=== PATIENT | female | born 1955 | race Caucasian/White ===

== ENCOUNTER 2017-08-15 02:51 | Emergency (ER) | payer MEDICAID, OTHER ==
[~2017-08-15] VITALS: Ht 157.5 cm; Wt 45.8 kg
[~2017-08-15 02:51] MED LIST: ALBU0.63 IH; CARI350T PO; HYDR-548 PO; HYDR25TA4 PO
--- NOTE | 2017-08-15 03:27 | NUR ---
DR ALLI NATHAN MD AT BEDSIDE FOR MSE.
[2017-08-15] MEDS ORDERED: IV NORMAL SALINE 1000 ML BAG IV ONE (03:30)
--- NOTE | 2017-08-15 03:52 | NUR ---
RADIOLOGY AT PT BEDSIDE FOR XRAY AND CT SCAN.
[2017-08-15 04:00] LABS: BASOPHILS % (AUTO) 0.4 % (0.0-2.0); EOSINOPHILS % (AUTO) 0.6 % (0.0-7.0); HEMOGLOBIN 14.6 g/dL (10.9-14.3); LYMPHOCYTES # (AUTO) 1.1 K/uL (20.0-40.0); LYMPHOCYTES % (AUTO) 22.9 % (20.5-51.5); MEAN CORPUSCULAR HEMOGLOBIN 30.1 uug (24.7-32.8); MEAN CORPUSCULAR HGB CONC 34 g/dL (32.3-35.6); MEAN CORPUSCULAR VOLUME 88.8 fL (75.5-95.3); MONOCYTES # (AUTO) 0.3 K/uL (2.0-10.0); MONOCYTES % (AUTO) 6.3 % (0.0-11.0); NEUTROPHILS # (AUTO) 3.4 K/uL (1.8-8.9); NEUTROPHILS % (AUTO) 69.8 % (38.5-71.5); PLATELET COUNT (AUTO) 246 K/uL (179-408); RED BLOOD CELL COUNT(AUTO) 4.84 MIL/uL (3.63-4.92); WHITE BLOOD COUNT (AUTO) 4.8 K/uL (3.8-11.8)
--- NOTE | 2017-08-15 04:16 | NUR ---
PT BECOMES INCREASINGLY AGGITATED, AND BECOMES VERBALLY ABUSIVE TOWARDS STAFF. PT REFUSES TO PROVIDE URINE OR ALLOW EKG TO BE COMPLETED "UNTIL SHE GETS HER PAIN MEDS".
[2017-08-15 04:21] LABS: ALANINE AMINOTRANSFERASE 28 U/L (14-59); ALKALINE PHOSPHATASE 118 U/L (50-136); ASPARTATE AMINOTRANSFERASE 48 U/L (15-37); BILIRUBIN,DIRECT 0.1 mg/dL (0.0-0.2); BILIRUBIN,TOTAL 0.5 mg/dL (0.2-1.0); CARBON DIOXIDE 28 mmol/L (21-32); CHLORIDE 102 mmol/L (98-107); CREATININE 0.6 mg/dL (0.6-1.3); GLUCOSE 91 mg/dL (74-106); POTASSIUM 3.7 mmol/L (3.5-5.1); TOTAL PROTEIN, SERUM 8.5 g/dL (6.4-8.2); UREA NITROGEN, BLOOD 9 mg/dL (7-18)
[2017-08-15 04:27] LABS: ETHANOL 105 MG/DL (0-0)
[2017-08-15 04:29] LABS: ACETAMINOPHEN < 2.0 ug/mL (10-30); THYROID STIMULATING HORMONE 1.104 mIU/mL (0.358-3.740)
[2017-08-15] MEDS ORDERED: diphenhydrAMINE 50 MG/1 ML VIAL ONE (04:54)
[2017-08-15] MEDS ORDERED: MORPHINE SULFATE 4 MG/1 ML DISP.SYRIN ONE (04:54)
[2017-08-15] MEDS ORDERED: diphenhydrAMINE 50 MG/1 ML VIAL IV ONE (05:00)
[2017-08-15] MEDS ORDERED: MORPHINE SULFATE 4 MG/1 ML DISP.SYRIN IV ONE (05:00)
--- NOTE | 2017-08-15 05:58 | NUR ---
PT RESTING IN BED W/ EYES CLOSED. BREATHING EVEN AND UNLABORED. NO DISTRESS NOTED.
--- NOTE | 2017-08-15 07:22 | NUR ---
REPORT GIVEN TO CHYNA BUITRAGO.
[2017-08-15 08:36] LABS: *BILIRUBIN,URIN NEGATIVE (NEGATIVE); *BLOOD, URINE NEGATIVE (NEGATIVE); *CLARITY,URINE CLEAR (CLEAR); *COLOR,URINE YELLOW (YELLOW); *KETONES,URINE NEGATIVE (NEGATIVE); *PROTEIN,URINE NEGATIVE (NEGATIVE); *UROBILINOGEN,URINE 0.2 E.U./dl (NORMAL); LEUKOCYTE ESTERASE ,URINE NEGATIVE (NEGATIVE); NITRITE, URINE POSITIVE (NEGATIVE); PH,URINE 5.5 (5.0-8.0); UGLUCOSE NEGATIVE (NEGATIVE)
[2017-08-15 08:42] LABS: BACTERIA,URINE MANY /HPF (NONE SEEN); RBC,URINE 0-3 /HPF (0-3); SQUAMOUS EPITHELIAL CELL,UR FEW /HPF (NONE SEEN)
--- NOTE | 2017-08-15 08:45 | NUR ---
DR PONCE DISCUSSED WITH [facility] PTRANSFER. [facility] BODY TEAM MEMBER PROMISED TO CALL BACK WITH TRANSFER INFORMATION.
[2017-08-15 08:46] LABS: *AMPHETAMINE, URINE NEGATIVE (NEGATIVE); *BARBITURATE, URINE NEGATIVE (NEGATIVE); *CANNABINOID, URINE NEGATIVE (NEGATIVE); *COCCAINE, URINE NEGATIVE (NEGATIVE); *OPIATE, URINE POSITIVE (NEGATIVE); *PHENCYCLIDINE SCREEN,URINE NEGATIVE (NEGATIVE)
[2017-08-15] MEDS ORDERED: LORAZEPAM 2 MG/1 ML VIAL IV ONE (09:15)
[2017-08-15] MEDS ORDERED: LORAZEPAM 2 MG/1 ML VIAL ONE (09:18)
--- NOTE | 2017-08-15 11:28 | NUR ---
DR PONCE TALKED TO [facility] PRODUCE DEPARTMENT SUPERVISOR ABOUT PT'S TRANSFER. [facility] DEPARTMENT SUPERVISOR PROMISED TO CALL BACK WITH TRANSFER INFORMATION. PT IS RESTING IN BED COMFORTABLY, NO S/S OF DISTRESS AT THIS TIME.
--- NOTE | 2017-08-15 11:28 | NUR ---
Amber jaranik in ED - 08/15/[address] PONCE TALKED TO [facility] ROUTE PROCESS ADMINISTRATOR ABOUT PT'S TRANSFER. [facility] ROUTE PROCESS ADMINISTRATOR PROMISED TO CALL BACK WITH TRANSFER INFORMATION. PT IS RESTING IN BED COMFORTABLY, NO S/S OF DISTRESS AT THIS TIME.
--- NOTE | 2017-08-15 11:59 | NUR ---
DR PONCE TALKED TO MANAGER ONCOLOGY ABNER FROM [facility]. PT IS GOING TO BE TRANSFERED TO [facility] , ACCEPTING MD IS DR. HILLS. PT IS RESTING IN BED. NO S/S OF DISTRESS AT THIS TIME. CONTINUE TO MONITOR THE PT.
--- NOTE | 2017-08-15 14:08 | NUR ---
PERMIT REVIEW ASSISTANT OF [facility] CALLED WITH TRANSFER INFORMATION : ROOM # 315-B, PHONE NUMBER FOR REPORT IS : [phone].
--- NOTE | 2017-08-15 15:17 | NUR ---
PT REFUSED TO GO TO [facility]. PT REFUSED TRANSFER. DR PONCE TALKED TO THE PT, BU PT INSISTED TO LEAVE HOSPITAL AMA AND REFUSED TRANSFER TO ANOTHER HOSPITAL. DR PONCE EXPLAINED TO THE PT ALL RISKS OF LEAVING HOSPITAL AMA. PT VERBALIZED FULL UNDERSTANDING OF AMA INSTRUCTIONS. PT SIGNED AMA FORM AND LEFT HOSPITAL . GAIT IS STABLE. PT DENIES HALL. NO N/V, NO SOB.
--- NOTE | 2017-08-15 15:21 | NUR ---
CLOTHING CONSULTANT ABNER WAS NOTIFIED, ACCORDING TO DR PONCE ORDER. [facility]NER CANCELLED TRNSPORTATION AND PT's TRNSFER .
[2017-08-15 15:29] VITALS: BP 130/79
== END 2017-08-15 15:30 | disposition left against medical advice (07) ==
LOC: ER 02:55
DX: R10.32 Left lower quadrant pain (principal); R41.82 Altered mental status, unspecified; I10 Essential (primary) hypertension; F17.210 Nicotine dependence, cigarettes, uncomplicated; Z88.8 Allergy status to other drugs, medicaments and biological substances; Z90.49 Acquired absence of other specified parts of digestive tract; Z59.0 Homelessness; Z79.891 Long term (current) use of opiate analgesic; Z79.899 Other long term (current) drug therapy
CPT/HCPCS: 36415; 70450; 71045; 74176; 80048; 80076; 80307; 81001; 82140; 83605; 83690; 84443; 84484; 85025; 85730; 87040 ×2; 93005; 96361; 96374; 96375; 99285; A4663; G0480 ×2; G0481; J1200; J2060; J2270; J7030; 70030-TC; 87086

== ENCOUNTER 2018-03-01 19:08 | Emergency (ER) | payer OTHER ==
[~2018-03-01] VITALS: Ht 154.9 cm; Wt 45.4 kg
[~2018-03-01 19:08] MED LIST changes: +HYDR-4354 PO; -HYDR-548 PO
[2018-03-01] MEDS ORDERED: HYDROCODONE/APAP 5-325MG TABLET PO ONE (19:30)
[2018-03-01] MEDS ORDERED: HYDROCODONE/APAP 5-325MG TABLET ONE (19:36)
--- NOTE | 2018-03-01 20:25 | NUR ---
Patient given written and verbal discharge instructions. Patient verbalizes understanding of instructions. Patient is ambulatory with steady gait. Refuses offer of half-way placement. Patient given list of available shelters in surrounding area. Pt given food.
[2018-03-01 20:27] VITALS: BP 108/77
== END 2018-03-01 20:29 | disposition home or self-care (01) ==
LOC: ER 19:10
DX: G89.29 Other chronic pain (principal); M54.2 Cervicalgia; M47.892 Other spondylosis, cervical region; I10 Essential (primary) hypertension; F17.200 Nicotine dependence, unspecified, uncomplicated; Z90.49 Acquired absence of other specified parts of digestive tract; Z59.0 Homelessness; Z88.8 Allergy status to other drugs, medicaments and biological substances; Z79.891 Long term (current) use of opiate analgesic; Z79.899 Other long term (current) drug therapy
CPT/HCPCS: 72050; A4663

== ENCOUNTER 2018-05-07 00:48 | Emergency (ER) | payer OTHER ==
[~2018-05-07] VITALS: Ht 154.9 cm; Wt 44.5 kg
[2018-05-07] MEDS ORDERED: HYDROCODONE/APAP 5-325MG TABLET ONE (01:55)
[2018-05-07] MEDS ORDERED: HYDROCODONE/APAP 5-325MG TABLET PO ONE (02:00)
[2018-05-07] MEDS ORDERED: AMOXicillin 250 MG CAPSULE PO ONE (02:15)
[2018-05-07] MEDS ORDERED: AMOXicillin 250 MG CAPSULE ONE (02:19)
--- NOTE | 2018-05-07 06:06 | NUR ---
Patient given written and verbal discharge instructions. Patient verbalizes understanding of instructions. Patient is ambulatory with steady gait. Refuses offer of correction placement. Patient given list of available shelters in surrounding area. Provided pt fabby ruiz.
== END 2018-05-07 06:09 | disposition home or self-care (01) ==
LOC: ER 00:53
DX: H66.92 Otitis media, unspecified, left ear (principal); M54.6 Pain in thoracic spine; R05 Cough; I10 Essential (primary) hypertension; F17.210 Nicotine dependence, cigarettes, uncomplicated; Z88.8 Allergy status to other drugs, medicaments and biological substances; Z59.0 Homelessness; Z79.891 Long term (current) use of opiate analgesic; Z79.899 Other long term (current) drug therapy
CPT/HCPCS: 71045; A4663

== ENCOUNTER 2018-06-02 00:10 | Emergency (ER) | payer OTHER ==
[~2018-06-02] VITALS: Ht 154.9 cm; Wt 45.4 kg
[2018-06-02] MEDS ORDERED: HYDROCODONE/APAP 10-325 MG TABLET ONE (00:57)
[2018-06-02] MEDS: HYDROCODONE/APAP 10-325 MG TABLET PO ONE (00:58)
[2018-06-02 01:42] LABS: BASOPHILS % (AUTO) 0.8 % (0.0-2.0); EOSINOPHILS % (AUTO) 0.7 % (0.0-7.0); HEMATOCRIT 30.1 % (31.2-41.9); HEMOGLOBIN 10.1 g/dL (10.9-14.3); LYMPHOCYTES # (AUTO) 1.2 K/uL (20.0-40.0); LYMPHOCYTES % (AUTO) 21.7 % (20.5-51.5); MEAN CORPUSCULAR HEMOGLOBIN 31.2 uug (24.7-32.8); MEAN CORPUSCULAR HGB CONC 34 g/dL (32.3-35.6); MEAN CORPUSCULAR VOLUME 93.3 fL (75.5-95.3); MONOCYTES # (AUTO) 0.5 K/uL (2.0-10.0); MONOCYTES % (AUTO) 8.7 % (0.0-11.0); NEUTROPHILS # (AUTO) 3.8 K/uL (1.8-8.9); NEUTROPHILS % (AUTO) 68.1 % (38.5-71.5); PLATELET COUNT (AUTO) 344 K/uL (179-408); RED BLOOD CELL COUNT(AUTO) 3.22 MIL/uL (3.63-4.92); WHITE BLOOD COUNT (AUTO) 5.6 K/uL (3.8-11.8)
[2018-06-02] MEDS ORDERED: MORPHINE SULFATE 2 MG/1 ML DISP.SYRIN ONE ×2 (01:43→05:37)
[2018-06-02] MEDS ORDERED: ONDANSETRON 4 MG/2 ML VIAL ONE ×2 (01:43→06:02)
[2018-06-02 02:03] LABS: BILIRUBIN,DIRECT 0.1 mg/dL (0.0-0.2); BILIRUBIN,TOTAL 0.2 mg/dL (0.2-1.0); CREATININE 0.6 mg/dL (0.6-1.3); POTASSIUM 3.7 mmol/L (3.5-5.1); TOTAL PROTEIN, SERUM 6.4 g/dL (6.4-8.2)
[2018-06-02] MEDS: MORPHINE SULFATE 2 MG/1 ML DISP.SYRIN IV ONE ×2 (02:14→05:37)
[2018-06-02] MEDS: ONDANSETRON 4 MG/2 ML VIAL IV ONE ×2 (02:14→06:19)
--- NOTE | 2018-06-02 04:01 | NUR ---
Spoke with Shanel from [place]. Requested face sheet and clinicals to be faxed to
--- NOTE | 2018-06-02 04:10 | NUR ---
CLINICALS FAXED TO YANDY AT [facility]
--- NOTE | 2018-06-02 05:51 | NUR ---
CLINICALS FAXED TO YANDY FROM [facility] . PATIENT WILL BE TRANSFERRED TO [facility], ACCEPTING DR. CARRENO. AWAITING CALL FOR ROOM NUMBER.
[2018-06-02] MEDS ORDERED: HYDROMORPHONE 1 MG/1 ML DISP.SYRIN ONE ×2 (06:02→09:39)
[2018-06-02] MEDS: HYDROMORPHONE 1 MG/1 ML DISP.SYRIN IV ONE ×2 (06:19→09:39)
--- NOTE | 2018-06-02 07:36 | NUR ---
Patient is resting comfortably on gurney with eyes closed, pending transfer information from [email or web address] time per report from previous CHYNA Hamm.
--- NOTE | 2018-06-02 08:47 | NUR ---
Per Prasanna, (our ER registration staff) this patient will go to [facility], pending callback from [facility] for transfer information.
--- NOTE | 2018-06-02 09:10 | NUR ---
Received telephone call from Brian from [facility] who stated pt will be tansfered to [facility] and she will call back with further information.
--- NOTE | 2018-06-02 09:30 | NUR ---
Received telephone call from Brian from [facility] with transfer information. Accepting Hospital: [facility] Accepting doctor : Dr. Perez Bed: 315A, call [phone] for report. Brian stated she will arrange for ambulance machine operator picker and call back with ETA.
--- NOTE | 2018-06-02 09:32 | NUR ---
Patient is not NPO per Dr Villagomez. Breakfast [email or web address].
--- NOTE | 2018-06-02 09:51 | NUR ---
Patient Tranfers to outside Facility: [facility] Physician: Dr Perez Location: 315 med-surgical bed RN: Wilder alcala hands off report ambulance arranged by [employer] ETA=??[email or web address] time([id number])
--- NOTE | 2018-06-02 10:00 | NUR ---
ETA for picker/puller = [id number] per telephone call from Brian [facility] [place].
--- NOTE | 2018-06-02 10:16 | NUR ---
Patient requested for new pair of pants. One blue jeans found in the donated clothing pile & offered to patient.
--- NOTE | 2018-06-02 11:12 | NUR ---
insole rasper of [facility] ambulance unit 112 accepted the patient. Patient wanted more IV pain medicine, Dr Villagomez notified- no new orders given at this time.
== END 2018-06-02 11:14 | disposition short-term general hospital (02) ==
LOC: ER 00:11
DX: S42.202A Unspecified fracture of upper end of left humerus, initial encounter for closed fracture (principal); F10.129 Alcohol abuse with intoxication, unspecified; I10 Essential (primary) hypertension; F17.210 Nicotine dependence, cigarettes, uncomplicated; Z59.0 Homelessness; Z88.8 Allergy status to other drugs, medicaments and biological substances; Y90.6 Blood alcohol level of 120-199 mg/100 ml; W19.XXXA Unspecified fall, initial encounter; Y93.89 Activity, other specified; Y92.89 Other specified places as the place of occurrence of the external cause; Y99.8 Other external cause status
CPT/HCPCS: 36415; 71045; 73020; 80048; 80076; 85025; 85730; 93005; 96374; 96375; 96376; 99285; G0480; J1170 ×2; J2270 ×2; J2405 ×2; A4663

== ENCOUNTER 2018-11-14 22:53 | Emergency (ER) | payer OTHER ==
[~2018-11-14] VITALS: Ht 154.9 cm; Wt 46.3 kg
--- NOTE | 2018-11-14 23:10 | NUR ---
PATIENT WAS MSE BY DR HOU IN ROOM 03A.
[2018-11-14] MEDS ORDERED: MORPHINE SULFATE 2 MG/1 ML DISP.SYRIN ONE (23:40)
[2018-11-14] MEDS ORDERED: TRAMADOL HCL 50 MG TABLET ONE (23:41)
[2018-11-14] MEDS: TRAMADOL HCL 50 MG TABLET PO ONE (23:43)
[2018-11-14] MEDS: MORPHINE SULFATE 2 MG/1 ML DISP.SYRIN IM ONE (23:50)
--- NOTE | 2018-11-14 23:51 | NUR ---
Patient discharged to home in stable conditon. Written and verbal after care instructions given. Patient verbalizes understanding of instructions.
== END 2018-11-14 23:57 | disposition home or self-care (01) ==
LOC: ER 22:53
DX: M25.512 Pain in left shoulder (principal); I10 Essential (primary) hypertension; F17.210 Nicotine dependence, cigarettes, uncomplicated; Z90.49 Acquired absence of other specified parts of digestive tract; Z59.0 Homelessness; Z88.8 Allergy status to other drugs, medicaments and biological substances; W01.0XXA Fall on same level from slipping, tripping and stumbling without subsequent striking against object, initial encounter; Y93.89 Activity, other specified; Y92.89 Other specified places as the place of occurrence of the external cause; Y99.8 Other external cause status
CPT/HCPCS: 73030; A4663; J2270

== ENCOUNTER 2018-11-15 19:30 | Emergency (ER) | payer OTHER ==
[~2018-11-15] VITALS: Ht 157.5 cm; Wt 45.4 kg
--- NOTE | 2018-11-15 19:54 | NUR ---
Patient eloped from facility. ER physician notified.
== END 2018-11-15 19:55 | disposition left against medical advice (07) ==
LOC: ER 19:34
DX: Z53.21 Procedure and treatment not carried out due to patient leaving prior to being seen by health care provider (principal)
CPT/HCPCS: A4663

== ENCOUNTER 2018-11-15 20:47 | Emergency (ER) | payer OTHER ==
[~2018-11-15] VITALS: Ht 152.4 cm; Wt 45.4 kg
--- NOTE | 2018-11-15 21:41 | NUR ---
DR. WHITT AT BEDSIDE FOR MSE.
[2018-11-15] MEDS: HYDROMORPHONE HCL 2 MG TABLET PO ONE (21:47)
[2018-11-15] MEDS: ONDANSETRON ODT 4 MG TAB.RAPDIS SL ONE (21:47)
[2018-11-15] MEDS ORDERED: HYDROMORPHONE HCL 2 MG TABLET ONE (21:49)
[2018-11-15] MEDS ORDERED: ONDANSETRON ODT 4 MG TAB.RAPDIS ONE (21:49)
[2018-11-15 21:53] VITALS: BP 132/68
--- NOTE | 2018-11-15 21:53 | NUR ---
Patient given written and verbal discharge instructions. Patient verbalizes understanding of instructions. Patient is ambulatory with steady gait. Refuses offer of usp placement. Patient given list of available shelters in surrounding area.
== END 2018-11-15 21:54 | disposition home or self-care (01) ==
LOC: ER 20:50
DX: G89.18 Other acute postprocedural pain (principal); M79.602 Pain in left arm; G89.4 Chronic pain syndrome; I10 Essential (primary) hypertension; F17.210 Nicotine dependence, cigarettes, uncomplicated; Z71.6 Tobacco abuse counseling; Z90.49 Acquired absence of other specified parts of digestive tract; Z59.0 Homelessness; Z88.8 Allergy status to other drugs, medicaments and biological substances
CPT/HCPCS: A4663; Q0162

== ENCOUNTER 2018-12-18 20:14 | Emergency (ER) | payer OTHER ==
[~2018-12-18] VITALS: Ht 154.9 cm; Wt 45.8 kg
--- NOTE | 2018-12-18 20:25 | NUR ---
: EUNICE AT B/S EVALUATE AND EXAMINED PATIENT .
--- NOTE | 2018-12-18 20:54 | NUR ---
AUGER PRESS OPERATOR AT B/S FOR LEFT SHOULDER XRAY AND RIGHT HIP XRAY . PATIENT AAOX4/ MAEX4.MP RESPIRATORY DISTRESS . ABLE TO ANSWER QUESTIONS .
[2018-12-18] MEDS ORDERED: ACETAMINOPHEN 325 MG TABLET PO ONE (21:00)
[2018-12-18] MEDS ORDERED: ACETAMINOPHEN ES 500 MG TABLET ONE (21:14)
--- NOTE | 2018-12-18 22:10 | NUR ---
Patient given written and verbal discharge instructions. Patient verbalizes understanding of instructions. Patient is ambulatory with steady gait. Refuses offer of usp placement. Patient given list of available shelters in surrounding area.patient given sandwishes and juices and water .patient will arrange own transportation and will arrange own transportation back to her previous living arrangement . went with d/c instruction and verbalized understanding and went with all belongings .
[2018-12-18 22:13] VITALS: BP 110/72
== END 2018-12-18 22:14 | disposition home or self-care (01) ==
LOC: ER 20:20
DX: G89.4 Chronic pain syndrome (principal); M25.512 Pain in left shoulder; M25.551 Pain in right hip; I25.2 Old myocardial infarction; F17.210 Nicotine dependence, cigarettes, uncomplicated; Z76.5 Malingerer [conscious simulation]; Z59.0 Homelessness; Z88.8 Allergy status to other drugs, medicaments and biological substances
CPT/HCPCS: 73030; 73502; A4663; A9150